=== PATIENT | male | born 1970 | race Hispanic/Latino ===

== ENCOUNTER 2017-07-14 19:21 | Emergency (ER) | payer BC ==
[~2017-07-14] VITALS: Ht 172.7 cm; Wt 108.9 kg
[~2017-07-14 19:21] MED LIST: ASPIRIN81 MG PO; LISINOPRIL10 MG PO; METFORMIN HCL500 MG PO
--- OUTSIDE RECORDS SUMMARY | 2017-07-14 19:23 | XMS REPORT ---
Author Author [facility] Address Unknown Phone Unavailable Care Team Providers Care Piano Mover Name Role Phone STEPHANIE ELKINS Unavailable Unavailable Problems This patient has no known problems. Allergies, Adverse Reactions, Alerts This patient has no known allergies or adverse reactions. Medications This patient has no known medications. Results Test Description Test Time Test Comments Text Results Atomic Results Result Comments GLUCOMETER GLUCOSE- LAB USE ONLY 2016-09-18 16:27:00 GLUCOMETER (test code=GMG) 101 mg/dL 70-100 Meter ID: [id number]: [id number] K[address] MORGANRED GLUCOMETER GLUCOSE- LAB USE [id number] 16:26:00* Test Item Value Reference Range Comments GLUCOMETER (test code=GMG) 102 mg/dL 70-100 CLEANED METERMeter ID: [id number] AMPAR[address] Hughes
[2017-07-14] MEDS ORDERED: KETOROLAC TROMETHAMINE 60 MG/2 ML VIAL IM ONE (19:30)
[2017-07-14] MEDS ORDERED: HYDROCODONE/APAP 5MG-325MG TAB PO ONE (19:45)
[2017-07-14 22:41] VITALS: BP 151/72
== END 2017-07-14 22:10 | disposition home or self-care (01) ==
LOC: FSED 19:21
DX: M25.562 Pain in left knee (principal); W01.0XXA Fall on same level from slipping, tripping and stumbling without subsequent striking against object, initial encounter; Y99.0 Civilian activity done for income or pay; I10 Essential (primary) hypertension; F17.210 Nicotine dependence, cigarettes, uncomplicated
CPT/HCPCS: 93971; 99284; J1885

== ENCOUNTER → 2019-09-17 | Emergency (ER) | payer BC ==
[~2019-09-17] VITALS: Ht 172.7 cm; Wt 108.9 kg
[~2019-09-17] MED LIST changes: +CEFTRIAXONE SOD 1 GM VIAL IM ONE; +KETOROLAC TROMETHAMINE 60 MG/2 ML VIAL IM NR; +LIDOCAINE HCL 1% 2 ML AMP ONE; +PHENAZOPYRIDINE HCL 100 MG TAB PO NR
--- NOTE | 2019-09-17 12:46 | NUR ---
scanned bladder for urinary retention, post void residual was 120 ml.
[2019-09-17 13:02] LABS: CLARITY,URINE CLEAR (CLEAR); COLOR,URINE PINK (YELLOW); KETONES,URINE NEGATIVE (NEGATIVE); LEUKOCYTE ESTERASE ,URINE TRACE (NEGATIVE); NITRITE,URINE NEGATIVE (NEGATIVE); PROTEIN,URINE DIPSTICK NEGATIVE (NEGATIVE); URINE UROBILINOGEN 0.2 mg/dL (0.2 - 1)
[2019-09-17 13:03] LABS: BILIRUBIN,URINE NEGATIVE (NEGATIVE)
[2019-09-17 13:15] LABS: RBC,URINE 21-50 /HPF (0-5); WBC,URINE (MAN) 21-50 /HPF (0-5)
[2019-09-17 13:16] LABS: BACTERIA,URINE FEW /HPF; EPITHELIAL CELLS,URINE FEW /LPF
--- NOTE | 2019-09-17 13:33 | Emergency Department Note ---
History of Present Illnes History of Present Illness Chief Complaint: burning while urination, urinating blood, increase urinary frequency History of Present Illness This is a 49 year old male. was doing well prior to this. Historian: Patient Arrival Mode: Car History limited by: condition of the patient (none) Classification Clerk Required: No Onset (how long ago): hour(s) (16) Location: see above Quality: burning Radiation: non-radiation Severity: moderate Onset quality: gradual Duration (how long): hour(s) (16) Timing of current episode: constant Progression: worsening Chronicity: new Context: recent illness, recent surgery, recent immobilization, recent travel, trauma/injury, new medications, hx of DVT/PE, non-compliance w/ medications Relieving factors: none Exacerbating factors: none Associated symptoms: denies other symptoms Treatments prior to arrival: none Past Medical/Family History Physician Review I have reviewed the patient's past medical and family history. Any updates have been documented here. Past Medical History Recent Fever: No Clinical Suspicion of Infectio: No New/Unexplained Change in Ment: No Past Medical History: Hypertension Past Surgical History: None Social History Smoking Cessation: Never Smoker Counseling Performed: No Alcohol Use: None Any Illegal Drug Use: No TB Exposure/Symptoms: No Physically hurt or threatened: No Other Any Pre-Existing Lines (PICC,: No Is patient up to date on immun: No Last Flu: utd Last Pneumovax: utd Review of Systems Review of Systems Constitutional: no symptoms EENTM: no symptoms Cardiovascular: no symptoms Respiratory: no symptoms Gastrointestinal: no symptoms Genitourinary: as per HPI, dysuria, frequency, hematuria Musculoskeletal: no symptoms Neurological: no symptoms Psychological: no symptoms Endocrine: no symptoms Hematological/Lymphatic: no symptoms Review of other systems All other systems reviewed and negative. Physical Exam Related Data Allergies: Coded Allergies: morphine (Verified Allergy, Unknown, 10/28/16) Triage Vital Signs Vital Signs Date Time Temp Pulse Resp B/P (MAP) Pulse Ox O2 Delivery O2 Flow Rate FiO2 09/17/19 12:27 98.4 124 16 152/86 98 Vital signs reviewed: Yes Physical Exam CONSTITUTIONAL Constitutional: well-developed, well-nourished HENT HENT: normocephalic, atraumatic, oropharynx clear/moist, nose normal HENT L/R: left ext ear normal, right ext ear normal EYES Eyes: PERRL, conjunctivae normal NECK Neck: ROM normal PULMONARY Pulmonary: effort normal, breath sounds normal CARDIOVASCULAR Cardiovascular: regular rhythm, heart sounds normal, capillary refill normal, normal rate GASTROINTESTINAL Abdominal: soft, nontender, bowel sounds normal GENITOURINARY Genitourinary: exam deferred SKIN Skin: warm, dry MUSCULOSKELETAL Musculoskeletal: ROM normal NEUROLOGICAL Neurological: alert, oriented x 3, no gross motor or sensory deficits PSYCHOLOGICAL Psychological: mood/affect normal, judgement normal Results Laboratory Laboratory Laboratory Tests Test 09/17/19 12:35 Urine Color [place] (YELLOW) Urine Clarity Clear (CLEAR) Urine pH 6.5 (5 - 7) Urine Specific [place] 1.010 (1.010-1.025) Urine Protein Negative (NEGATIVE) Urine Glucose (UA) Negative (NEGATIVE) Urine Ketones Negative (NEGATIVE) Urine Blood Large (NEGATIVE) Urine Nitrite Negative (NEGATIVE) Urine Bilirubin Negative (NEGATIVE) Urine Urobilinogen 0.2 mg/dL (0.2 - 1) Urine Leukocyte Esterase Trace (NEGATIVE) Urine RBC 21-50 /HPF (0-5) Urine WBC 21-50 /HPF (0-5) Urine Epithelial Cells Few /LPF (NONE) Urine Bacteria Few /HPF (NONE) Lab results reviewed: Yes Critical Care Time Subsequent provider I assumed direction of critical care for this patient from another provider of my specialty. Assessment & Plan Assessment & Plan Final Impression: (1) URINARY TRACT INFECTION, SITE NOT SPECIFIED Assessment & Plan TAKE RXED CIPRO, PYRIDIUM. DRINK PLENTY OF WATER Depart Disposition: HOME, SELF-CARE Last Vital Signs Date Time Temp Pulse Resp B/P (MAP) Pulse Ox O2 Delivery O2 Flow Rate FiO2 09/17/19 12:27 98.4 124 16 152/86 98 Home Meds Reported Medications Aspirin (ASPIRIN) 81 Mg Tab.chew, 81 MG PO DAILY 10/29/16 Metformin Hcl (METFORMIN HCL) 500 Mg Tablet, 500 MG PO DAILY, #60 TAB 10/29/16 Lisinopril (LISINOPRIL) 10 Mg Tablet, 20 MG PO DAILY, #30 TAB 10/29/16 Medications in the ED Ceftriaxone Sodium 1 gm ONCE ONCE IM ; Start 09/17/19 at 13:30; Stop 09/17/19 at 13:31 Ketorolac Tromethamine 60 mg ONCE IM ; Start 09/17/19 at 13:30; Stop 09/17/19 at 13:28; Status DC PEGGY CHOI September 17, 2019 13:33
== END | disposition home or self-care (01) ==
LOC: ER 12:20
DX: R30.0 Dysuria (principal); R31.9 Hematuria, unspecified; N39.0 Urinary tract infection, site not specified; I10 Essential (primary) hypertension
CPT/HCPCS: 81001; 99282; J0696; J2001; 87086

== ENCOUNTER 2020-11-03 13:33 | Emergency (ER) | payer BC ==
[~2020-11-03] VITALS: Ht 177.8 cm; Wt 121.1 kg
[~2020-11-03 13:33] MED LIST changes: -CEFTRIAXONE SOD 1 GM VIAL IM ONE; -KETOROLAC TROMETHAMINE 60 MG/2 ML VIAL IM NR; -LIDOCAINE HCL 1% 2 ML AMP ONE; -PHENAZOPYRIDINE HCL 100 MG TAB PO NR
[2020-11-03 14:13] LABS: BASOPHILS # (AUTO) 0.1 (0.0-0.1); BASOPHILS % 0.6 % (0.0-1.0); EOSINOPHILS # (AUTO) 0.3 (0.0-0.4); EOSINOPHILS % 3.4 % (0.0-6.0); HEMATOCRIT 47.3 % (38.2-49.6); HEMOGLOBIN 15.9 g/dL (14.0-18.0); LYMPHOCYTES # (AUTO) 2.6 (1.0-3.2); LYMPHOCYTES % 32.5 % (18.0-39.1); MEAN CORPUSCULAR HEMOGLOBIN 32.3 pg (28-32); MEAN CORPUSCULAR HGB CONC 33.6 g/dL (31-35); MEAN CORPUSCULAR VOLUME 96.1 fL (81-99); MONOCYTES # (AUTO) 0.6 (0.2-0.8); MONOCYTES % 7.3 % (4.4-11.3); NEUTROPHILS # (AUTO) 4.5 (2.1-6.9); NEUTROPHILS % 55.5 % (38.7-80.0); PLATELET COUNT 167 x10e3/uL (140-360); RED BLOOD COUNT 4.92 x10e6/uL (4.3-5.7); RED CELL DISTRIBUTION WIDTH 12.7 % (11.7-14.4)
[2020-11-03 14:42] LABS: INR 0.85; PARTIAL THROMBOPLASTIN TIME 26.1 seconds (23.8-35.5); PROTHROMBIN TIME 12.1 seconds (11.9-14.5)
[2020-11-03 14:48] LABS: ALBUMIN 4.4 g/dL (3.5-5.0); ALBUMIN/GLOBULIN RATIO 1.4 (0.8-2.0); ANION GAP 15.7 mmol/L (8-16); CALCIUM 9.6 mg/dL (8.4-10.2); CREATININE, SERUM 1.04 mg/dL (0.72-1.25); MAGNESIUM 1.8 MG/DL (1.3-2.1); POTASSIUM 3.7 mmol/L (3.5-5.1)
[2020-11-03 14:55] LABS: CREATINE KINASE MB 2.6 ng/mL (0-5.0)
[2020-11-03 15:43] VITALS: BP 126/80
== END 2020-11-03 15:44 | disposition home or self-care (01) ==
LOC: ER 14:04
DX: R07.89 Other chest pain (principal); I10 Essential (primary) hypertension; E11.9 Type 2 diabetes mellitus without complications; E78.5 Hyperlipidemia, unspecified
CPT/HCPCS: 36415; 71045; 80053; 82550; 82553; 83735; 83880; 84484; 85025; 85379; 85610; 85730; 93005; 99284

== ENCOUNTER → 2020-11-23 | Day surgery (SDC) | payer BC ==
[~2020-11-23] MED LIST changes: +EPHEDRINE SULFATE INJ 50 MG/ML VIAL ONE; +FENTANYL CITRATE/PF 100MCG/2 ML INJ ONE; +GLUCAGON FOR INJ 1 MG VIAL ONE; +HYOSCYAMINE SULFATE 0.5 MG/ML INJ ONE; +LIDOCAINE HCL 2% LOCAL INJ 5 ML SDV VIAL INJ ONE; +MIDAZOLAM HCL 2 MG/2 ML VIAL ONE
[2020-11-23 15:10] VITALS: BP 98/62
== END | disposition home or self-care (01) ==
LOC: OR 11:23
PROVIDERS: ATTEND Internal Medicine Gastroenterology
DX: K29.00 Acute gastritis without bleeding (principal); K29.80 Duodenitis without bleeding; K20.90 Esophagitis, unspecified without bleeding; K29.70 Gastritis, unspecified, without bleeding; K31.89 Other diseases of stomach and duodenum; K57.30 Diverticulosis of large intestine without perforation or abscess without bleeding; K63.5 Polyp of colon; K64.8 Other hemorrhoids; K59.09 Other constipation; K21.9 Gastro-esophageal reflux disease without esophagitis; Z68.41 Body mass index [BMI] 40.0-44.9, adult; Z88.5 Allergy status to narcotic agent; Z01.812 Encounter for preprocedural laboratory examination; Z20.822 Contact with and (suspected) exposure to COVID-19; G47.33 Obstructive sleep apnea (adult) (pediatric); I10 Essential (primary) hypertension; F41.9 Anxiety disorder, unspecified
CPT/HCPCS: 36415; 43239; 45380; 45385; 82948; C9113; J1610; J1980; J2001; J2250; J3010; U0002; 45378

== ENCOUNTER → 2022-06-13 | Day surgery (SDC) | payer BC ==
[~2022-06-13] MED LIST changes: +ATORVASTATIN CA40 MG PO; +DOXAZOSIN MESYLA2 MG PO; -EPHEDRINE SULFATE INJ 50 MG/ML VIAL ONE; -FENTANYL CITRATE/PF 100MCG/2 ML INJ ONE; -GLUCAGON FOR INJ 1 MG VIAL ONE; -HYOSCYAMINE SULFATE 0.5 MG/ML INJ ONE; +LOSARTAN POTAS100 MG PO; +METOCLOPRAMIDE HCL 10 MG/2ML VIAL ONE; +ONDANSETRON HCL INJ 2MG/ML 2ML 2 MG/ML VIAL ONE; +PANTOPRAZOLE SO20 MG PO; +PIOGLITAZONE30 MG PO; +POVIDONE IODINE 0.05% 0.05 % ML PO ONE; +PROPOFOL IV EMULSION 10 MG/ML 20 ML VIAL ONE
[2022-06-13 12:30] VITALS: BP 102/86
== END | disposition home or self-care (01) ==
LOC: OR 10:24
PROVIDERS: ATTEND Internal Medicine Gastroenterology
DX: K59.00 Constipation, unspecified (principal); K63.5 Polyp of colon; K57.30 Diverticulosis of large intestine without perforation or abscess without bleeding; K64.8 Other hemorrhoids; K21.9 Gastro-esophageal reflux disease without esophagitis; Z71.3 Dietary counseling and surveillance; G47.33 Obstructive sleep apnea (adult) (pediatric); E11.9 Type 2 diabetes mellitus without complications; I10 Essential (primary) hypertension; Z71.89 Other specified counseling; E78.00 Pure hypercholesterolemia, unspecified; Z88.6 Allergy status to analgesic agent; Z01.810 Encounter for preprocedural cardiovascular examination; Z79.82 Long term (current) use of aspirin; Z79.84 Long term (current) use of oral hypoglycemic drugs; Z79.899 Other long term (current) drug therapy; Z68.42 Body mass index [BMI] 45.0-49.9, adult
CPT/HCPCS: 45380; 93005; J2001; J2250; J2405; J2704; J2765